=== PATIENT | female | born 1960 | race Caucasian/White ===

== ENCOUNTER 2016-05-23 05:42 | Day surgery (SDC) | payer OTHER ==
[2016-05-23] VITALS (9 sets, daily range): BP systolic 96–135; BP diastolic 40–61; PULSE 57–81; RESP 14–18; Ht 170.2 cm; Wt 125.7 kg
[~2016-05-23] VITALS: Ht 170.2 cm; Wt 125.7 kg
[~2016-05-23 05:42] MED LIST: LEVO500T72 PO; PANT40TA3 PO; VER120SR PO
[2016-05-23] MEDS ORDERED: CEFAZOLIN 2 GM/50 ML (PMX) 50 ML IVPB SCH (07:00)
[2016-05-23] MEDS ORDERED: PROPOFOL 200 MG INJ ONE (07:00)
[2016-05-23] MEDS ORDERED: ROCURONIUM 50 MG INJ ONE (07:00)
[2016-05-23] MEDS ORDERED: ATOR40TA68 PO (07:01)
[2016-05-23] MEDS ORDERED: LEVO100T87 PO (07:01)
[2016-05-23] MEDS ORDERED: MIDAZOLAM 1 MG/ML 2 ML INJ ONE (07:36)
[2016-05-23] MEDS ORDERED: PROPOFOL 20 ML ONE (07:36)
[2016-05-23] MEDS ORDERED: SUCCINYLCHOLINE CHLORIDE 100 MG/5 ML SYG IV ONE (07:36)
[2016-05-23] MEDS ORDERED: FENTAnyl 50 MCG/ML VIAL ONE (07:37)
[2016-05-23] MEDS ORDERED: BUPIVACAINE 0.25% (MPF) 30 ML INJ ONE (07:41)
[2016-05-23] MEDS ORDERED: CEFAZOLIN 1 GM INJ ONE (07:48)
[2016-05-23] MEDS ORDERED: ROPIVACAINE 0.2% 20 ML VIAL ONE (07:51)
[2016-05-23] MEDS ORDERED: PHENYLephrine (100 MCG/ML) 5ML SYG ONE (07:54)
[2016-05-23] MEDS ORDERED: ONDANSETRON 4 MG INJ ONE (07:55)
[2016-05-23] MEDS ORDERED: FAMOTIDINE 20 MG INJ ONE (07:56)
[2016-05-23] MEDS ORDERED: DEXAMETHASONE 4 MG/ML 1 ML INJ ONE (07:56)
[2016-05-23] MEDS: SOD CHLORIDE 0.9% 1,000 ML IV SCH ×2 (08:21→08:56)
[2016-05-23] MEDS ORDERED: HYDROmorphONE (0.2 MG/ML) 10ML SYG IV PRN ×2 (08:30)
[2016-05-23] MEDS ORDERED: MEPERIDINE 25 MG INJ IV PRN (08:30)
[2016-05-23] MEDS ORDERED: ONDANSETRON 4 MG INJ IV PRN (08:30)
[2016-05-23] MEDS ORDERED: GLYCOPYRROLATE 0.4 MG INJ ONE (08:33)
[2016-05-23] MEDS ORDERED: NEOSTIGMINE 3 MG/3 ML SYRINGE ONE (08:33)
[2016-05-23] MEDS ORDERED: HYDROCODONE/APAP (5/325) TAB PO ONE (09:00)
[2016-05-23] MEDS: HYDROmorphONE (0.2 MG/ML) 10ML SYG IV PRN ×3 (09:03→09:29)
--- NOTE | 2016-05-23 11:36 | OPR ---
DATE OF OPERATION: 05/23/2016 INDICATION: This is a 56-year-old female with symptomatic gallstones. She had a previous ERCP for common bile duct stone which was cleared. She presents for a laparoscopic cholecystectomy. Risks, alternatives, benefits, and personnel were discussed with the patient. The patient expressed his un derstanding and consents to the operation. PREOPERATIVE DIAGNOSIS: Symptomatic gallstones. POSTOPERATIVE DIAGNOSIS: Symptomatic gallstones. OPERATION: Laparoscopic cholecystectomy. SURGEON: Adrian Sullivan MD SPECIMENS: Gallbladder. COMPLICATIONS: None. ANESTHESIA: General. DESCRIPTION OF PROCEDURE: The patient was taken to the OR and prepped and draped in the usual steri le fashion. A surgical time out was performed. IV antibiotics were given. Infraumbilical incision was made with a 15 blade transversely. Dissection cautery was carried down to the fascia which was divided with curved Hester scissors, 0 Vicryl U-stitch was placed into the fascia. Balloon Yadira tr ocar was introduced and pneumoperitoneum established. Midepigastric 12 mm optical trocar, right upp er quadrant and right upper flank 5 mm optical trocars were placed under direct visualization. Upon initial inspection, there were some adhesions in the gallbladder which were taken down bluntly. Th e cystic duct was identified. The critical view was established. The cystic duct was divided using a 35 mm [place] stapler vascular load. The cystic artery is divided with 3 clips proximal, 1 clip distal. The gallbladder was taken off the gallbladder bed. There was good hemostasis. Gallbladder was retrieved using EndoCatch bag. Ports were removed under direct visualization. 0 Vicryl U-stit ch was tied down. Skin was closed using skin ricky. Local anesthesia was injected. Dry dressing s were applied. Dictated By: ADRIAN SULLIVAN MD SB/NTS Conf#: [id number] DID#: [id number]
== END 2016-05-23 10:58 | disposition home or self-care (01) ==
LOC: SDS 05:42
PROVIDERS: ATTEND Surgery
DX: K80.10 Calculus of gallbladder with chronic cholecystitis without obstruction (principal)
CPT/HCPCS: 47562; 88304; J0330; J0690; J1100; J1170; J2175; J2250; J2405; J2710; J2795; J3010; J2370